=== PATIENT | female | born 1990 | race Caucasian/White ===

== ENCOUNTER 2024-01-30 15:58 | Outpatient (CLI) | payer OTHER, SELFPAY | END 2024-01-30 15:59 | disposition home or self-care (01) | PROVIDERS: PCP Family Medicine; Visit Provider Family Medicine | DX: Z00.00 Encounter for general adult medical examination without abnormal findings (principal); F90.9 Attention-deficit hyperactivity disorder, unspecified type; Z83.49 Family history of other endocrine, nutritional and metabolic diseases | CPT/HCPCS: 84443; 86376 ==

== ENCOUNTER 2024-05-07 12:00 | Outpatient (CLI) | payer OTHER, SELFPAY | END 2024-05-07 12:01 | disposition home or self-care (01) | LOC: NFLDREF 05-11 13:07 | PROVIDERS: PCP Family Medicine; Referring Provider Family Medicine; Visit Provider Physician Assistant Medical | DX: R19.7 Diarrhea, unspecified (principal) | CPT/HCPCS: 87505 ==